=== PATIENT | male | born 1970 | race African-American/Black ===

== ENCOUNTER 2021-09-30 11:01 | Day surgery (SDC) | payer OTHER ==
[~2021-09-30] VITALS: Ht 177.8 cm; Wt 108.9 kg
[~2021-09-30 11:01] MED LIST: NAPROSYN500 MG PO; NO; NO HOME MEDS; NORVASC10 M1 PO
[2021-09-30 16:28] VITALS: BP 158/97
== END 2021-09-30 16:25 | disposition home or self-care (01) | DRG 951 ==
LOC: ENDO 11:01
PROVIDERS: ATTEND Surgery
PROC: 0D5N8ZZ Destruction of Sigmoid Colon, Via Natural or Artificial Opening Endoscopic (ICD-10-PCS; principal; 2021-09-30)
DX: Z12.11 Encounter for screening for malignant neoplasm of colon (principal); D12.5 Benign neoplasm of sigmoid colon; K57.30 Diverticulosis of large intestine without perforation or abscess without bleeding; I10 Essential (primary) hypertension